=== PATIENT | female | born 1970 | race Caucasian/White ===

== ENCOUNTER 2018-10-05 15:35 | Emergency (ER) | payer OTHER ==
[~2018-10-05] VITALS: Ht 162.6 cm; Wt 78.5 kg
[~2018-10-05 15:35] MED LIST: CITALOPRAM HBR40 MG PO; GABAPENTIN300 MG PO; IMITREX50 MG PO; LISINOPRIL20 MG PO; PRAVASTATIN SOD80 MG PO; PROGESTERONE100 MG PO; ROBAXIN-750750 MG PO; TRAZODONE HCL50 MG PO
--- OUTSIDE RECORDS SUMMARY | 2018-10-05 15:38 | XMS ---
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 Brid[place] VISIT COUNT (12 MO.) [address] Satya Mix TOTAL 7 NOTE: Visits indicate total known visits. ED/UCC VISIT TRACKING (12 MO.) 10/05/2018 15:36 T[facility] Lopez OR TYPE: Emergency COMPLAINT: - POST OP PROBLEM, RIGHT SHOULDER PAIN 08/18/2018 20:36 [email or web address] DIAGNOSES: - Pain in right shoulder - arm pain 08/03/2018 19:39 [email or web address] OR TYPE: Emergency DIAGNOSES: - Primary osteoarthritis, right shoulder - shoulder pain - Calcific tendinitis of right shoulder - Unspecified injury of muscle, fascia and tendon of other parts of biceps, unspecified arm, initial encounter 07/14/2018 11:32 [email or web address] OR TYPE: Emergency DIAGNOSES: - Pain in right shoulder - R ARM PAIN 07/08/2018 21:57 [email or web address] OR TYPE: Emergency DIAGNOSES: - SHOULDER INJURY AND RINGWORM - Contusion of right shoulder, initial encounter 06/07/2018 10:34 [email or web address] OR TYPE: Emergency DIAGNOSES: - RIGHT SHOULDER PAIN - Causalgia of right upper limb 11/22/2017 14:02 [email or web address] OR TYPE: Emergency COMPLAINT: - DIFFICULTY BREATHING INPATIENT VISIT TRACKING (12 MO.) No inpatient visits to display in this time frame [id number]
[2018-10-05] MEDS ORDERED: KEFLEX500 MG PO (16:20)
== END 2018-10-05 16:38 | disposition home or self-care (01) ==
LOC: ED 15:35
DX: T81.40XA Infection following a procedure, unspecified, initial encounter (principal); E78.5 Hyperlipidemia, unspecified; I10 Essential (primary) hypertension; F17.200 Nicotine dependence, unspecified, uncomplicated; Z88.2 Allergy status to sulfonamides; Z79.899 Other long term (current) drug therapy
CPT/HCPCS: 99283

== ENCOUNTER 2019-07-25 17:18 | Emergency (ER) | payer OTHER ==
[~2019-07-25] VITALS: Ht 162.6 cm; Wt 78.5 kg
[~2019-07-25 17:18] MED LIST changes: +KEFLEX500 MG PO
[2019-07-25] MEDS ORDERED: VALIUM5 MG PO (18:17)
== END 2019-07-25 18:30 | disposition home or self-care (01) ==
LOC: ED 17:18
DX: S46.911A Strain of unspecified muscle, fascia and tendon at shoulder and upper arm level, right arm, initial encounter (principal); I10 Essential (primary) hypertension; E78.5 Hyperlipidemia, unspecified; Z87.891 Personal history of nicotine dependence; Z88.2 Allergy status to sulfonamides; Z79.899 Other long term (current) drug therapy; X58.XXXA Exposure to other specified factors, initial encounter
CPT/HCPCS: 73030; 96372; 99283-25; J1885; J3360

== ENCOUNTER 2019-12-30 15:57 | Emergency (ER) | payer OTHER ==
[~2019-12-30] VITALS: Ht 162.6 cm; Wt 78.5 kg
[~2019-12-30 15:57] MED LIST changes: +VALIUM5 MG PO
--- OUTSIDE RECORDS SUMMARY | 2019-12-30 16:00 | XMS ---
PreManage Notification: LEON CONTRERAS Security Net Washer Events No recent Security Events currently on file CRITERIA MET - [facility] CARE PROVIDERS TUAN BUCKNER Physician Foreign Law Consultant Current PHONE: [phone] Tanya has no Care Guidelines for this patient. Bridger VISIT COUNT (12 MO.) 2 TREY Dumont TOTAL 2 NOTE: Visits indicate total known visits. ED/UCC VISIT TRACKING (12 MO.) 12/30/2019 15:58 [facility] OR TYPE: Emergency COMPLAINT: - N/V/D, HEADACHE 07/25/2019 17:19 T[facility] Lopez OR TYPE: Emergency COMPLAINT: - RIGHT SIDE SHOULDER PAIN DIAGNOSES: - Strain of unspecified muscle, fascia and tendon at shoulder a - Other penitentiary (current) drug therapy - Hyperlipidemia, unspecified - Personal history of nicotine dependence - Essential (primary) hypertension - Allergy status to sulfonamides status - Pain in right shoulder - Exposure to other specified factors, initial encounter INPATIENT VISIT TRACKING (12 MO.) No inpatient visits to display in this time frame [id number]
== END 2019-12-30 18:00 | disposition home or self-care (01) ==
LOC: ED 15:57
DX: G43.909 Migraine, unspecified, not intractable, without status migrainosus (principal); E78.5 Hyperlipidemia, unspecified; I10 Essential (primary) hypertension; F17.200 Nicotine dependence, unspecified, uncomplicated; Z20.828 Contact with and (suspected) exposure to other viral communicable diseases; Z88.2 Allergy status to sulfonamides; Z79.899 Other long term (current) drug therapy
CPT/HCPCS: 80053; 83735; 85025; 96361; 96374; 96375; 99284-25; J0780; J1100; J1200; J7030

== ENCOUNTER 2020-04-14 18:39 | Emergency (ER) | payer OTHER ==
[~2020-04-14] VITALS: Ht 162.6 cm; Wt 78.5 kg
[2020-04-14] MEDS ORDERED: METOPROLOL TART50 MG PO (22:09)
--- NOTE | 2020-04-15 17:44 | EKG ---
[facility] [address] [place], [place] [address] Signed Normal sinus rhythm Normal ECG When compared with ECG of 22-SEP-2018 12:40, No significant change was found Confirmed by REID CALVO MD ([id number]) on 04/15/2020 5:44:41 PM Electronically Signed By: REID CALVO MD 04/15/20 1744 PATIENT NAME: LEON CONTRERAS Electrocardiogram DATE OF : 68 PHYSICIAN: REID CALVO MD REPORT #: [id number] REPORT IS CONFIDENTIAL AND NOT TO BE RELEASED WITHOUT AUTHORIZATION
== END 2020-04-14 22:31 | disposition home or self-care (01) ==
LOC: ED 18:39
DX: R07.2 Precordial pain (principal); I10 Essential (primary) hypertension; E78.5 Hyperlipidemia, unspecified; F17.200 Nicotine dependence, unspecified, uncomplicated; Z88.2 Allergy status to sulfonamides; Z79.899 Other long term (current) drug therapy
CPT/HCPCS: 71045; 80053; 83690; 83735; 84484; 85025; 85379; 93005; 93010; 96374; 99285-25; J7030

== ENCOUNTER 2024-10-03 13:55 | Emergency (ER) | payer OTHER ==
[~2024-10-03] VITALS: Ht 162.6 cm; Wt 79.4 kg
[~2024-10-03 13:55] MED LIST changes: +METOPROLOL TART50 MG PO
--- OUTSIDE RECORDS SUMMARY | 2024-10-03 14:02 | XMS ---
PreManage Notification: LEON CONTRERAS Security Quality Assurance Monitor Chassis Events No recent Security Events currently on file CRITERIA MET - 6 ED Visits in 6 Months CARE PROVIDERS LORRI POLLACK Community Health Worker 02/06/2023-Current PHONE: [phone] [facility], [facility]/[place]: [facility] Current MEDICAL PHONE: [phone] TUAN BUCKNER Physician Sole Assessor Current PHONE: [phone] Tanya has no Care Guidelines for this patient. E.Selma. VISIT COUNT (12 MO.) 6 [facility] 1 TREY ScottMis TOTAL 7 NOTE: Visits indicate total known visits. ED/UCC VISIT TRACKING (12 MO.) 10/03/2024 13:56 TRE[facility] Lopez OR TYPE: Emergency COMPLAINT: - ABDOMINAL PAIN 08/21/2024 10:19 [facility] [place] TYPE: Emergency DIAGNOSES: - WOUND CHECK 08/08/2024 12:36 [facility] OR TYPE: Emergency DIAGNOSES: - Generalized abdominal pain - Hypokalemia - Hypomagnesemia - ABD PAIN 08/03/2024 15:15 [facility] OR TYPE: Emergency DIAGNOSES: - Other acute postprocedural pain - ABD PAIN DIZZY 06/13/2024 16:42 [facility] OR TYPE: Emergency DIAGNOSES: - Diverticulitis of large intestine with perforation and abscess without bleeding - ABD PAIN 06/08/2024 17:40 [facility] OR TYPE: Emergency DIAGNOSES: - Acute cystitis without hematuria - Diverticulitis of intestine, part unspecified, without perforation or abscess without bleeding - FLANK PAIN 04/03/2024 16:41 [facility] OR TYPE: Emergency DIAGNOSES: - Disorder of adrenal gland, unspecified - Diverticulitis of intestine, part unspecified, without perforation or abscess without bleeding - PAIN INPATIENT VISIT TRACKING (12 MO.) 08/21/2024 10:19 [facility] OR TYPE: Medical Surgical DIAGNOSES: - Fistula of intestine - Hypokalemia - Disruption or dehiscence of closure of internal operation (surgical) wound of abdominal wall muscle or fascia, subsequent encounter 07/24/2024 15:57 [facility] OR TYPE: Medical Surgical DIAGNOSES: - Diverticulitis of intestine, part unspecified, without perforation or abscess without bleeding - Infection following a procedure, other surgical site, initial encounter - Peritoneal abscess - Unspecified protein-calorie malnutrition 06/15/2024 00:47 [facility] OR TYPE: Trauma COMPLAINT: - Metabolic Acidosis DIAGNOSES: - Metabolic Acidosis 06/13/2024 16:42 [facility] OR TYPE: Surgery DIAGNOSES: - Diverticulitis of large intestine with perforation and abscess without bleeding [id number]
[2024-10-03 14:57] LABS: BASOPHILS 0.6 % (0-2); EOSINOPHILS 1.2 % (0-6); HEMATOCRIT 30.7 % (35.0-50.0); HEMOGLOBIN 10.1 g/dL (12.0-18.0); LYMPHOCYTES 46.1 % (24-44); MCH 28.2 (27-36); MCHC 32.9 g/dl (30-36); MCV 85.7 fl (81-99); MONOCYTES 6.6 % (0-12); NEUTROPHILS 45.5 % (39-80); PLATELET COUNT 349 K/uL (140-440); RBC 3.58 M/ul (4.3-5.7)
[2024-10-03] MEDS ORDERED: MORPHINE SULFATE 4 MG/ML VIAL IV ONE (15:15)
[2024-10-03] MEDS ORDERED: ondansetron HCL 4 MG/2 ML VIAL IV ONE (15:15)
[2024-10-03 15:17] LABS: ALBUMIN 2.6 g/dL (3.4-5.0); ALBUMIN/GLOBULIN RATIO 0.49 (1.1-2.4); ANION GAP 12.6 (7-21); BILIRUBIN, TOTAL 0.2 mg/dL (0.2-1.0); BUN/CREATININE RATIO 7.79 (6.0-28.6); CALCIUM 8.7 mg/dL (8.5-10.1); CREATININE, SERUM 0.77 mg/dL (0.55-1.02); POTASSIUM 3.6 mmol/L (3.5-5.1); PROTEIN, TOTAL 7.9 g/dL (6.4-8.2)
[2024-10-03] MEDS ORDERED: HYDROmorphone HCL 1 MG/ML SYR IV ONE (15:45)
[2024-10-03] MEDS ORDERED: HYDROCODON-ACE1 EA10 PO (16:50)
[2024-10-03] MEDS ORDERED: HYDROCODONE BIT/ACETAMINOPHEN 5/325 MG 1 TAB HOME.PACK PO ONE (17:00)
[2024-10-03 17:01] VITALS: BP 135/77
== END 2024-10-03 17:01 | disposition home or self-care (01) ==
LOC: ED 13:55
PROVIDERS: Emergency Medicine
DX: R10.9 Unspecified abdominal pain (principal); I10 Essential (primary) hypertension; E78.5 Hyperlipidemia, unspecified; F17.200 Nicotine dependence, unspecified, uncomplicated; Z88.2 Allergy status to sulfonamides; Z79.899 Other long term (current) drug therapy
CPT/HCPCS: 36415; 74177; 80053; 83690; 85025; 96375; 99284-25; A9270; J1171; J2270; J2405; Q9967

== ENCOUNTER 2024-10-14 17:37 | Emergency (ER) | payer OTHER ==
[~2024-10-14] VITALS: Ht 162.6 cm; Wt 77.0 kg
[~2024-10-14 17:37] MED LIST changes: +HYDROCODON-ACE1 EA10 PO
--- OUTSIDE RECORDS SUMMARY | 2024-10-14 17:44 | XMS ---
PreManage Notification: LEON CONTRERAS Security Coach Operator Events No recent Security Events currently on file CRITERIA MET - 6 ED Visits in 6 Months - [facility] - 2 Visits in 30 Days CARE PROVIDERS LORRI POLLACK Community Health Worker 02/06/2023-Current PHONE: [phone] [facility], [facility]/Center: [facility] Current MEDICAL PHONE: [phone] TUAN BUCKNER Physician Cco Current PHONE: [phone] Tanya has no Care Guidelines for this patient. E.D. VISIT COUNT (12 MO.) 6 [facility] 2 [facility] Satya Mix TOTAL 8 NOTE: Visits indicate total known visits. ED/UCC VISIT TRACKING (12 MO.) 10/14/2024 17:38 TRE[facility] Lopez [place] TYPE: Emergency COMPLAINT: - ABDOMINAL PAIN 10/03/2024 13:56 TREY Lopez OR TYPE: Emergency COMPLAINT: - ABDOMINAL PAIN DIAGNOSES: - Allergy status to sulfonamides - Essential (primary) hypertension - Hyperlipidemia, unspecified - Nicotine dependence, unspecified, uncomplicated - Other adjunct faculty for medical terminology (current) drug therapy - Unspecified abdominal pain 08/21/2024 10:19 [facility] [place] TYPE: Emergency DIAGNOSES: - WOUND CHECK 08/08/2024 12:36 [facility] [place] TYPE: Emergency DIAGNOSES: - Generalized abdominal pain - Hypokalemia - Hypomagnesemia - ABD PAIN 08/03/2024 15:15 [facility] OR TYPE: Emergency DIAGNOSES: - Other acute postprocedural pain - ABD PAIN DIZZY 06/13/2024 16:42 [facility] OR TYPE: Emergency DIAGNOSES: - Diverticulitis of large intestine with perforation and abscess without bleeding - ABD PAIN 06/08/2024 17:40 [facility] OR TYPE: Emergency DIAGNOSES: - Acute cystitis without hematuria - Diverticulitis of intestine, part unspecified, without perforation or abscess without bleeding - FLANK PAIN 04/03/2024 16:41 [facility] OR TYPE: Emergency DIAGNOSES: - Disorder of adrenal gland, unspecified - Diverticulitis of intestine, part unspecified, without perforation or abscess without bleeding - PAIN INPATIENT VISIT TRACKING (12 MO.) 08/21/2024 10:19 [facility] OR TYPE: Medical Surgical DIAGNOSES: - Fistula of intestine - Hypokalemia - Disruption or dehiscence of closure of internal operation (surgical) wound of abdominal wall muscle or fascia, subsequent encounter 07/24/2024 15:57 [facility] [place] TYPE: Medical Surgical DIAGNOSES: - Diverticulitis of intestine, part unspecified, without perforation or abscess without bleeding - Infection following a procedure, other surgical site, initial encounter - Peritoneal abscess - Unspecified protein-calorie malnutrition 06/15/2024 00:47 Jordan Howell OR TYPE: Trauma COMPLAINT: - Metabolic Acidosis DIAGNOSES: - Metabolic Acidosis 06/13/2024 16:42 [facility] OR TYPE: Surgery DIAGNOSES: - Diverticulitis of large intestine with perforation and abscess without bleeding [id number]
[2024-10-14] MEDS ORDERED: ATORVASTATIN CA40 MG PO (17:51)
[2024-10-14] MEDS ORDERED: ONDANSETRON ODT4 MG PO (17:51)
[2024-10-14] MEDS ORDERED: ondansetron HCL 4 MG/2 ML VIAL IV ONE (18:00)
[2024-10-14 18:01] LABS: HEMATOCRIT 35.6 % (34.1-44.9); HEMOGLOBIN 11.3 g/dL (11.2-15.7); MCH 27.6 PG (25.6-32.2); MCHC 31.7 g/dL (32.2-35.5); MCV 86.8 fL (79.4-94.8); PLATELET COUNT 391 K/uL (182-369)
[2024-10-14 18:10] LABS: BILIRUBIN, URINE POSITIVE (negative); BLOOD/HGB, URINE NEGATIVE (Negative); KETONE, URINE SMALL (Negative); LEUK ESTERASE, URINE NEGATIVE (negative); NITRITE, URINE NEGATIVE (negative); PH, URINE 6.5 (5-7)
[2024-10-14 18:10] LABS: ALBUMIN 3.3 g/dL (3.4-5.0); ALBUMIN/GLOBULIN RATIO 0.67 (1.1-2.4); ANION GAP 16.3 (7-21); BILIRUBIN, TOTAL 0.2 mg/dL (0.2-1.0); BUN/CREATININE RATIO 14.89 (6.0-28.6); CALCIUM 9.3 mg/dL (8.5-10.1); CREATININE, SERUM 0.94 mg/dL (0.55-1.02); POTASSIUM 3.3 mmol/L (3.5-5.1); PROTEIN, TOTAL 8.2 g/dL (6.4-8.2)
[2024-10-14 18:19] LABS: LYMPHOCYTES, MANUAL DIFF 54; MONOCYTES, MANUAL DIFF 4; NEUTROPHILS, MANUAL DIFF 42
[2024-10-14] MEDS ORDERED: MORPHINE SULFATE 4 MG/ML VIAL IV ONE (19:45)
[2024-10-14] MEDS ORDERED: HYDROCODON-ACE1 EA10 PO (21:16)
[2024-10-14] MEDS ORDERED: HYDROCODONE BIT/ACETAMINOPHEN 5/325 MG 1 TAB HOME.PACK PO ONE (21:30)
[2024-10-14] MEDS ORDERED: KETOROLAC TROMETHAMINE 60 MG/2 ML VIAL IM ONE (22:00)
[2024-10-14] MEDS ORDERED: KETOROLAC TROMETHAMINE 30 MG/ML VIAL IV ONE (22:00)
[2024-10-14 22:07] LABS: AMPHETAMINES, URINE NEGATIVE (NEGATIVE); BARBITURATES, URINE NEGATIVE (NEGATIVE); BENZODIAZEPINE, URINE NEGATIVE (NEGATIVE); BUPRENORPHINE, URINE NEGATIVE (NEGATIVE); CANNABINOID, URINE POSITIVE (NEGATIVE); COCAINE, URINE NEGATIVE (NEGATIVE); ECSTASY, URINE POSITIVE (NEGATIVE); FENTANYL, URINE NEGATIVE (NEGATIVE); METHADONE, URINE NEGATIVE (NEGATIVE); OPIATES, URINE NEGATIVE (NEGATIVE); OXYCODONE, URINE NEGATIVE (NEGATIVE); PHENCYCLIDINE, URINE NEGATIVE (NEGATIVE)
[2024-10-14 22:11] LABS: ACETAMINOPHEN 0 ug/mL (10-30); ALCOHOL, MEDICAL <3 ng/dL (<3); SALICYLATE 4.7 mg/dL (2.8-20.0); TSH, 3RD GENERATION 0.346 uIU/mL (0.358-3.740)
[2024-10-15] MEDS ORDERED: METOPROLOL TARTRATE 50 MG TAB PO SCH (09:00)
[2024-10-15] MEDS ORDERED: GABAPENTIN 300 MG CAP PO SCH (09:00)
[2024-10-15] MEDS ORDERED: CITALOPRAM HYDROBROMIDE 20 MG TAB PO SCH (09:00)
[2024-10-15 13:18] VITALS: BP 147/80
[2024-10-15] MEDS ORDERED: ATORVASTATIN 40 MG TAB PO SCH (17:00)
[2024-10-15] MEDS ORDERED: TRAZODONE HCL 100 MG TAB PO SCH (21:00)
== END 2024-10-15 13:15 | disposition home or self-care (01) ==
LOC: ED 17:37
PROVIDERS: Emergency Medicine; Family Medicine
DX: K94.09 Other complications of colostomy (principal); R45.851 Suicidal ideations; I10 Essential (primary) hypertension; E78.5 Hyperlipidemia, unspecified; F17.200 Nicotine dependence, unspecified, uncomplicated; Z88.2 Allergy status to sulfonamides; Z79.899 Other long term (current) drug therapy
CPT/HCPCS: 36415; 74177; 80053; 80307; 81003; 83690; 84443; 85025; 96375; 99284-25; A9270; G0480; J1885; J2270; J2405; Q9967